=== PATIENT | male | born 2000 | race Hispanic/Latino ===

== ENCOUNTER 2018-03-03 00:49 | Emergency (ER) | payer SELFPAY ==
[2018-03-03 01:08] VITALS: BP 138/75; PULSE 60; RESP 14; TEMP 98.8; O2SAT 99
--- NOTE | 2018-03-03 01:22 | C.PDOC ---
History Of Present Illness 17 year old male presents to the ED accompanied by his father for evaluation. Patient's girlfriend states patient told her he was going to kill himself. While in the ED patient denies suicidal ideation, states he had a fight with his girlfriend. Patient denies SI/HI, hallucinations, injury, fall, trauma, other medical complaints. Time Seen by Provider: 03/03/18 01:15 Chief Complaint (Nursing): Psychiatric Evaluation History Per: Patient History/Exam Limitations: no limitations Onset/Duration Of Symptoms: Hrs Current Symptoms Are (Timing): Still Present Suicide/Self Injury Attempted (Context): None Modifying Factor(s): None Associated Symptoms: denies: Depression, Suicidal Thoughts, Suicidal Plan Recent travel outside of the [place]: No Additional History Per: Patient, Family, Girlfriend Past Medical History Reviewed: Historical Data, Nursing Documentation, Vital Signs Vital Signs: Last Vital Signs Temp 98.8 F 03/03/18 01:07 Pulse 60 03/03/18 01:07 Resp 14 03/03/18 01:07 BP 138/75 03/03/18 01:07 Pulse Ox 99 03/03/18 01:07 - Medical History PMH: No Chronic Diseases Surgical History: No Surg Hx Family History: States: Unknown Family Hx - Social History Hx Alcohol Use: Yes Hx Substance Use: No - Immunization History Hx Tetanus Toxoid Vaccination: No Hx Influenza Vaccination: No Hx Pneumococcal Vaccination: No Review Of Systems Constitutional: Negative for: Fever, Chills Cardiovascular: Negative for: Chest Pain, Palpitations Respiratory: Negative for: Shortness of Breath Gastrointestinal: Negative for: Nausea, Vomiting, Abdominal Pain Skin: Negative for: Rash Psych: Negative for: Depression, Suicidal ideation Physical Exam - Physical Exam Appears: Non-toxic, No Acute Distress Skin: Normal Color, Warm, Dry Head: Atraumatic, Normacephalic Eye(s): bilateral: Normal Inspection Neck: Normal ROM, Supple Chest: Symmetrical Cardiovascular: Rhythm Regular Respiratory: Normal Breath Sounds, No Rales, No Rhonchi, No Wheezing Gastrointestinal/Abdominal: Soft, No Tenderness, No Guarding, No Rebound Extremity: Normal ROM, No Tenderness, No Swelling Neurological/Psych: Oriented x3, Normal Speech, Normal Cognition Gait: Steady ED Course And Treatment O2 Sat by Pulse Oximetry: 99 (ON RA) Pulse Ox Interpretation: Normal - Physician Consult Information Time Consulting Physician Contacted: 01:30 Outcome Of Conversation: s/p crisis eval, cleared for dc Medical Decision Making Medical Decision Making: Plan: * Crisis eval Disposition Counseled Patient/Family Regarding: Diagnosis, Need For Followup - Disposition Disposition: HOME/ ROUTINE Disposition Time: 01:30 Condition: GOOD Instructions: Adjustment Disorder Forms: [facility] (Finnish) - Clinical Impression Clinical Impression: Broken heart syndrome - Scribe Statement The provider has reviewed the documentation as recorded by the Scribe Oscar Morton All medical record entries made by the Scribe were at my direction and personally dictated by me. I have reviewed the chart and agree that the record accurately reflects my personal performance of the history, physical exam, medical decision making, and the department course for this patient. I have also personally directed, reviewed, and agree with the discharge instructions and disposition.
== END 2018-03-03 01:51 | disposition home or self-care (01) ==
LOC: C.ER 00:49
DX: Z00.8 Encounter for other general examination (principal)